=== PATIENT | female | born 1995 ===

== ENCOUNTER 2016-08-07 18:16 | Emergency (ER) | payer MEDICAID ==
[2016-08-07 18:51] LABS: PH,URINE 6.5 (5.0-8.0); SPECIFIC GRAVITY 1.015 (1.001-1.030); URINE APPEARANCE CLOUDY; URINE BILIRUBIN NEGATIVE (NEGATIVE); URINE BLOOD 3+ (NEGATIVE); URINE COLOR YELLOW; URINE GLUCOSE (UA) NEGATIVE (NEGATIVE); URINE LEUKOCYTE ESTERASE 1+ (NEGATIVE); URINE NITRITE NEGATIVE (NEGATIVE); URINE PROTEIN 1+ (NEGATIVE); URINE UROBILINOGEN NORMAL (0-1 mg/dl)
[2016-08-07 19:00] LABS: URINE AMORPHOUS SEDIMENT FEW
[2016-08-07 19:01] LABS: URINE BACTERIA 2+; URINE WBC >100 /hpf
[2016-08-07 19:40] LABS: HCG,QUALITATIVE URINE NEGATIVE
[2016-08-07] MEDS ORDERED: CEPHALEXIN 500 MG CAPSULE ONE (20:04)
== END 2016-08-07 20:12 | disposition home or self-care (01) ==
LOC: ED 18:16
DX: N39.0 Urinary tract infection, site not specified (principal)
CPT/HCPCS: 81025; 87086; 87186; 81001; 99283 ×2; A9270